=== PATIENT | male | born 1980 | race Caucasian/White ===

== ENCOUNTER 2021-03-06 09:23 | Emergency (ER) | payer OTHER ==
[2021-03-06 09:42] LABS: HEMOGLOBIN 13.4 gm/dl (14.0-17.5); RED BLOOD COUNT 4.23 M/UL (4.20-5.50); WHITE BLOOD COUNT 10.3 K/UL (4.5-11.0)
[2021-03-06 10:23] LABS: BUN/CREATININE RATIO 16 (0-10)
[2021-03-06] MEDS ORDERED: IBUPROFEN600 MG PO (11:58)
== END 2021-03-06 12:20 | disposition home or self-care (01) ==
LOC: ER1 09:23
PROVIDERS: Emergency Medicine
DX: S09.90XA Unspecified injury of head, initial encounter (principal); S70.02XA Contusion of left hip, initial encounter; S20.212A Contusion of left front wall of thorax, initial encounter; S13.4XXA Sprain of ligaments of cervical spine, initial encounter; S33.5XXA Sprain of ligaments of lumbar spine, initial encounter; F17.200 Nicotine dependence, unspecified, uncomplicated; W19.XXXA Unspecified fall, initial encounter
CPT/HCPCS: 70450; 71111; 72125; 72131; 73030; 73502; 80053; 82550; 82553; 83874; 84484; 85025; 96374; 99284; C9113; J2270